=== PATIENT | female | born 1990 | race African-American/Black ===

== ENCOUNTER 2018-09-07 05:18 | Inpatient (IN) | payer MEDICAID ==
[~2018-09-07] VITALS: Ht 152.4 cm; Wt 93.9 kg
[2018-09-07] MEDS ORDERED: PREN1TAB78 MT (05:54)
[2018-09-07] MEDS ORDERED: DEXT 5%/LR + PITOCIN 20UNITS/L 1,000 ML IV SCH ×2 (05:57→14:15)
[2018-09-07] MEDS ORDERED: BUTORPHANOL TARTRATE 2 MG/ML VIAL IV PRN ×2 (06:00→10:45)
[2018-09-07] MEDS ORDERED: METHYLERGONOVINE MALEATE 0.2 MG/ML IM PRN (06:00)
[2018-09-07] MEDS ORDERED: LIDOCAINE HCL 1% 20ML VIAL (Pyxis) INJ INFIL SCH (06:00)
[2018-09-07] MEDS ORDERED: NALOXONE HCL 0.4 MG/ML 1ML VIAL IM PRN (06:00)
[2018-09-07] MEDS ORDERED: AMPICILLIN 2,000 MG in SODIUM CHLORIDE 0.9% 100 ML IV SCH (06:30)
[2018-09-07] MEDS: LACTATED RINGERS 1,000 ML IV SCH ×2 (06:33→06:43)
[2018-09-07 06:49] LABS: BASOPHILS % 0.4 % (0.0-2.0); EOSINOPHILS % 1.4 % (0.0-5.0); HEMATOCRIT. 29.5 % (36.0-48.0); HEMOGLOBIN. 9.6 g/dL (12.0-16.0); LYMPHOCYTES % 24.9 % (20.0-50.0); MEAN CORPUSCULAR HEMOGLOBIN 24.2 pg (28.0-32.0); MEAN CORPUSCULAR VOLUME 74.6 fL (81.0-99.0); MEAN PLATELET VOLUME 8.3 fl (7.4-10.4); MONOCYTES % 9.9 % (2.0-8.0); NEUTROPHILS % 63.4 % (40.0-76.0); PLATELET 285 x1000/uL (130-400); RED BLOOD CELL COUNT 3.95 mill/uL (4.2-5.4); RED CELL DISTRIBUTION WIDTH 15.7 % (11.6-14.6)
[2018-09-07 06:51] LABS: PARTIAL THROMBOPLASTIN TIME 28.7 sec (23.4-31.0)
[2018-09-07 07:17] LABS: CLARITY URINE CLOUDY (CLEAR); COLOR URINE YELLOW (YELLOW); KETONES URINE NEGATIVE (NEGATIVE); LEUKOCYTE ESTERASE URINE 3+ (NEGATIVE); NITRITE URINE NEGATIVE (NEGATIVE); OCCULT BLOOD URINE 3+ (NEGATIVE); PROTEIN URINE NEGATIVE (NEGATIVE); SPECIFIC GRAVITY URINE 1.011 (1.005-1.030); UROBILINOGEN URINE 0.2 E.U./dL (0.2-1.0)
[2018-09-07 07:23] LABS: HEPATITIS B SURFACE ANTIGEN NEGATIVE
[2018-09-07 07:47] LABS: METHADONE URINE SCREEN NEGATIVE (NEGATIVE)
[2018-09-07 07:48] LABS: *BARBITURATES SCREEN URINE NEGATIVE (NEGATIVE); CANNABINOID URINE SCREEN NEGATIVE (NEGATIVE); OPIATES URINE SCREEN NEGATIVE (NEGATIVE)
[2018-09-07 07:49] LABS: *AMPHETAMINES SCREEN URINE NEGATIVE (NEGATIVE); *BENZODIAZEPINES SCREEN URINE NEGATIVE (NEGATIVE); *COCAINE SCREEN URINE NEGATIVE (NEGATIVE); PHENCYCLIDINE URINE SCREEN NEGATIVE (NEGATIVE)
[2018-09-07] MEDS ORDERED: MINERAL OIL 30ML BOTTLE PO NR (11:15)
[2018-09-07] MEDS ORDERED: AMPICILLIN 1,000 MG in SODIUM CHLORIDE 0.9% 50 ML IV SCH (12:00)
[2018-09-07] MEDS ORDERED: FENTANYL CITRATE/PF 50MCG/ML 2ML VIAL ONE (12:04)
[2018-09-07] MEDS ORDERED: MORPHINE SULFATE/PF 1MG/ML 10ML AMP ONE (12:04)
[2018-09-07] MEDS ORDERED: MEPERIDINE HCL/PF 25MG/ML CPJ IV PRN (13:00)
[2018-09-07] MEDS ORDERED: ONDANSETRON HCL 4MG/2ML INJ IV PRN ×2 (13:00→14:15)
[2018-09-07] MEDS ORDERED: LABETALOL HCL 20MG/4ML CARPUJECT IV PRN (13:00)
[2018-09-07] MEDS ORDERED: HYDROMORPHONE HCL/PF 2MG/ML CPJ IV PRN (13:00)
[2018-09-07 13:01] LABS: BG BASE EXCESS -5.9 mmol/L (-2.0-2.0); BG FRACTION INSPIRED OXYGEN 21; BG HCO3 ACT 22.5 mmol/L (22.0-26.0); BG PCO2 55.7 mmHg (35.0-45.0); BG PH 7.224 (7.350-7.450); BG PO2 < 30.3 mmHg (75.0-100.0); BG SAMPLE SITE CORD; BG VENT MODE ROOM AIR
[2018-09-07 13:03] LABS: BG BASE EXCESS -14.5 mmol/L (-2.0-2.0); BG FRACTION INSPIRED OXYGEN 21; BG HCO3 ACT 16.8 mmol/L (22.0-26.0); BG PCO2 63.4 mmHg (35.0-45.0); BG PH 7.042 (7.350-7.450); BG PO2 < 30.3 mmHg (75.0-100.0); BG SAMPLE SITE CORD; BG VENT MODE ROOM AIR
[2018-09-07] MEDS ORDERED: OXYTOCIN 10 UNITS/ML 1ML ONE (13:15)
[2018-09-07] MEDS ORDERED: CEFAZOLIN SODIUM 1000MG/VIAL ONE (13:15)
[2018-09-07] MEDS ORDERED: EPHEDRINE SULFATE 50MG/ML VIAL ONE (13:15)
[2018-09-07] MEDS ORDERED: ONDANSETRON HCL 4MG/2ML INJ ONE (13:15)
[2018-09-07] MEDS ORDERED: LANOLIN OINT 7GM TUBE TOP PRN (14:15)
[2018-09-07] MEDS ORDERED: IBUPROFEN 400MG TABLET PO PRN (14:15)
[2018-09-07] MEDS ORDERED: RHO(D) IMMUNE GLOBULIN 300 MCG/SYR IM PRN (14:15)
[2018-09-07] MEDS ORDERED: BISACODYL 10MG SUPP PR PRN (14:15)
[2018-09-07] MEDS ORDERED: LACTATED RINGERS 1,000 ML IV SCH (14:30)
[2018-09-07] MEDS: KETOROLAC 30MG/ML VIAL IV PRN ×2 (15:20→23:46)
[2018-09-07 16:30] VITALS: BP 110/58
[2018-09-07 17:00] VITALS: BP 110/60
[2018-09-07 20:00] VITALS: BP 104/51
[2018-09-07] MEDS: DOCUSATE SODIUM 100MG CAPSULE PO SCH (21:00)
[2018-09-08 04:00] VITALS: BP 101/57
[2018-09-08] MEDS: KETOROLAC 30MG/ML VIAL IV PRN (07:41)
[2018-09-08] MEDS: PRENATAL VIT/FE FUMARATE/FA TABLET PO SCH (07:41)
[2018-09-08 08:10] VITALS: BP 101/49
[2018-09-08 09:41] LABS: BASOPHILS % 0.2 % (0.0-2.0); EOSINOPHILS % 0.2 % (0.0-5.0); LYMPHOCYTES % 11.3 % (20.0-50.0); MEAN CORPUSCULAR HEMOGLOBIN 24.1 pg (28.0-32.0); MEAN CORPUSCULAR VOLUME 75.5 fL (81.0-99.0); MEAN PLATELET VOLUME 7.7 fl (7.4-10.4); MONOCYTES % 8.8 % (2.0-8.0); NEUTROPHILS % 79.5 % (40.0-76.0); PLATELET 225 x1000/uL (130-400); RED BLOOD CELL COUNT 2.72 mill/uL (4.2-5.4); RED CELL DISTRIBUTION WIDTH 15.7 % (11.6-14.6)
[2018-09-08 09:51] LABS: HEMATOCRIT. 20.5 % (36.0-48.0); HEMOGLOBIN. 6.5 g/dL (12.0-16.0)
[2018-09-08 16:00] VITALS: BP 102/49
[2018-09-08 20:00] VITALS: BP 106/53
[2018-09-08] MEDS: DOCUSATE SODIUM 100MG CAPSULE PO SCH (21:00)
[2018-09-08] MEDS: ACETAMINOPHEN WITH CODEINE 300/30MG TABLET PO PRN (21:08)
[2018-09-09] VITALS: BP 113/58
[2018-09-09] MEDS: ACETAMINOPHEN WITH CODEINE 300/30MG TABLET PO PRN (03:11)
[2018-09-09 04:00] VITALS: BP 110/67
[2018-09-09 07:36] VITALS: BP 91/52
[2018-09-09] MEDS: PRENATAL VIT/FE FUMARATE/FA TABLET PO SCH (08:11)
[2018-09-09] MEDS: HYDROCODONE/ACETAMINOPHEN 5/325MG TABLET PO PRN ×3 (08:12→21:11)
[2018-09-09 15:59] VITALS: BP 107/63
[2018-09-09 20:00] VITALS: BP 102/60
[2018-09-09] MEDS: DOCUSATE SODIUM 100MG CAPSULE PO SCH (22:38)
[2018-09-10] VITALS: BP 112/72
[2018-09-10] MEDS: HYDROCODONE/ACETAMINOPHEN 5/325MG TABLET PO PRN ×2 (01:40→08:12)
[2018-09-10 04:00] VITALS: BP 110/67
[2018-09-10] MEDS: PRENATAL VIT/FE FUMARATE/FA TABLET PO SCH (08:12)
[2018-09-10 08:30] VITALS: BP 110/72
== END 2018-09-10 11:50 | disposition home or self-care (01) | DRG 540 ==
LOC: OBSVTOIN 05:18 → 8 EST LDRP 05:18 → 8EST 16:07
PROVIDERS: ADMIT Obstetrics & Gynecology; ATTEND Obstetrics & Gynecology
PROC: 10D00Z1 Extraction of Products of Conception, Low, Open Approach (ICD-10-PCS; principal; 2018-09-07)
PROC: 10907ZC Drainage of Amniotic Fluid, Therapeutic from Products of Conception, Via Natural or Artificial Opening (ICD-10-PCS; 2018-09-07)
DX: O32.2XX0 Maternal care for transverse and oblique lie, not applicable or unspecified (principal); D64.9 Anemia, unspecified; O99.03 Anemia complicating the puerperium; Z37.0 Single live birth; Z3A.37 37 weeks gestation of pregnancy; Z90.89 Acquired absence of other organs; Z79.899 Other long term (current) drug therapy
CPT/HCPCS: 36415; 36600; 76815; 80305; 82805; 86592; 86703; 86762; 86850; 86900; 87340; 88307; 99281; J0290; J0595; J0690; J1885; J2274; J2310; J2405; J2590; J3010; J3490; J7050; J7120; A4315